=== PATIENT | male | born 1995 | race Caucasian/White ===

== ENCOUNTER 2020-10-30 14:36 | Emergency (ER) | payer BC ==
--- NOTE | 2020-10-30 15:50 | CR ---
Left shoulder: 3 views of the left shoulder were obtained. Comparison: No previous study. Glenohumeral joint and acromioclavicular joint appear within normal limits. No acute fracture, dislocation or other bony abnormality is appreciated. No abnormal soft tissue calcifications are seen. Impression: 1. No abnormality is appreciated on 3 view left shoulder study. Diagnostic code #1
--- NOTE | 2020-10-30 16:30 | EDM.PDOC ---
ED HPI GENERAL MEDICAL PROBLEM - General Chief Complaint: Upper Extremity Injury/Pain Stated Complaint: LT SHOULDER PAIN Time Seen by Provider: 10/30/20 14:53 Source of Information: Reports: Patient History Limitations: Reports: No Limitations - History of Present Illness INITIAL COMMENTS - FREE TEXT/NARRATIVE: 25-year-old male presents the emergency department today with complaints of left shoulder pain. Patient states that approximately a year ago he injured his left shoulder while at work. He does not recall exactly how it happened however he noted that it felt like it was shifting and grinding. He states that he did follow-up and it was recommended that he see physical therapy for strengthening however he was not able to do this due to Covid. He states that eventually the pain and weakness in the shoulder joint resolved. About 2 weeks ago the patient was wrestling with a friend when he felt his shoulder give way and felt like it was grinding. He states since that time he cannot raise his left arm laterally and if he does he feels like there is something "slipping "in his left shoulder and he also experiences a significant amount of pain. States that over the course the past 2 days when he has his hands at his side, such as walking, he notices his left arm from his shoulder to his fingertips feel numb and tingly. He has used a sling and this does seem to help and resolve the numbness and tingling. He was seen at [facility] recently and started on ibuprofen 600 mg 3 times a day however he states that it is no longer helping the discomfort. Patient does have an appointment scheduled with Dr. Nicolas, orthopedic surgeon, however it is not until the of this month. 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 Left Shoulder Pain Score (Numeric/FACES): 3 - Related Data Allergies Allergy/AdvReac Type Severity Reaction Status Date / Time No Known Allergies Allergy Verified 10/30/20 14:55 Home Meds: Home Meds Gabapentin [Neurontin] 600 mg PO BEDTIME #20 tab 10/30/20 [Rx] Ibuprofen [Ibu] 600 mg PO TID PRN 10/30/20 [History] Past Medical History Musculoskeletal History: Reports: Fracture Other Musculoskeletal History: left foot (2010) - Infectious Disease History Infectious Disease History: Reports: None - Past Surgical History HEENT Surgical History: Reports: Oral Surgery Other HEENT Surgeries/Procedures: [place] Teeth extraction Social & Family History - Family History Family Medical History: No Pertinent Family History - Caffeine Use Caffeine Use: Reports: Soda - Recreational Drug Use Recreational Drug Use: No Review of Systems - Review of Systems Review Of Systems: Comprehensive ROS is negative, except as noted in HPI. ED EXAM, GENERAL - Physical Exam Exam: See Below Exam Limited By: No Limitations General Appearance: Alert, WD/WN, No Apparent Distress Ears: Normal External Exam, Hearing Grossly Normal Nose: Normal Inspection Throat/Mouth: Normal Inspection, Normal Lips, Normal Voice, No Airway Compromise Head: Atraumatic Neck: Normal Inspection, Supple Respiratory/Chest: No Respiratory Distress, No Accessory Muscle Use Cardiovascular: Normal Peripheral Pulses, Regular Rate, Rhythm, No Murmur Peripheral Pulses: 2+: Radial (L), Radial (R) GI/Abdominal: No Distention (Male) Exam: Deferred Rectal (Males) Exam: Deferred Back Exam: Normal Inspection Extremities: Normal Inspection, Normal Capillary Refill, Limited Range of Motion (Left upper extremity). No: Non-Tender (Tenderness noted to left upper extremity when lifting arm laterally) Neurological: Alert, Oriented, Normal Cognition Psychiatric: Normal Affect, Normal Mood Skin Exam: Warm, Dry, Intact, Normal Color, No Rash Lymphatic: No Adenopathy Course - Vital Signs Text/Narrative:: Patient presents with pain and decreased range of motion to his left shoulder. Was recently seen at [facility] and started on ibuprofen however no x-rays were completed. Upon my assessment patient is unable to raise his left arm laterally higher than shoulder level with active range of motion due to pain and a grinding sensation in his left shoulder. Patient does allow me to raise his arm just slightly above his head laterally with passive range of motion however he does develop discomfort with that as well. He has decreased strength noted on the left side versus the right when arm is placed behind his back allowing him to push away from his body. I have ordered an x-ray of the left shoulder. Last Recorded V/S: Last Vital Signs Temp 98.7 F 10/30/20 14:50 Pulse 83 10/30/20 14:50 Resp 16 10/30/20 14:50 BP 143/76 H 10/30/20 14:50 Pulse Ox 98 10/30/20 14:50 - Orders/Labs/Meds Orders: Active Orders 24 hr Category Date Time Status DME for Discharge [COMM] Stat Oth 10/30/20 16:14 Ordered - Re-Assessments/Exams Free Text/Narrative Re-Assessment/Exam: 10/30/20 16:57 Radiologist impression 3 view of the left shoulder: 1. No abnormality is appreciated on 3 view of the left shoulder study. Patient will need to follow-up with the orthopedic surgeon as he likely needs an MRI of the left shoulder. He will be placed in the sling and swath to provide stability and prevent further injury of the left shoulder. I will also order for him to begin taking gabapentin 600 mg at bedtime per recommendations of Dr. Giles. Departure - Departure Time of Disposition: 16:24 Disposition: Home, Self-Care 01 Condition: Good Clinical Impression: Recent shoulder injury - Discharge Information Prescriptions: Gabapentin [Neurontin] 600 mg PO BEDTIME #20 tab Referrals: PCP,None [Primary Care Provider] - Forms: ED Department Discharge Additional Instructions: You are seen in the emergency department today with complaints of pain to your left shoulder after injury that occurred about 2 weeks ago when wrestling with a friend. X-rays were completed and these were essentially unremarkable. You likely have a tear to your glenohumeral joint. Treatment for this is immobilization with sling and swath. And follow up with Dr. Nicolas at [facility]. The phone number is [phone]. I have sent a prescription for Gabapentin 600mg to be taken at bedtime. This medication should help the pain and tingling. Sepsis Event Note (ED) - Evaluation Sepsis Screening Result: No Definite Risk - Focused Exam Vital Signs: Vital Signs Temp Pulse Resp BP Pulse Ox 10/30/20 14:50 98.7 F 83 16 143/76 H 98 - My Orders Last 24 Hours: My Active Orders 10/30/20 16:14 DME for Discharge [COMM] Stat - Assessment/Plan Last 24 Hours: My Active Orders 10/30/20 16:14 DME for Discharge [COMM] Stat
== END 2020-10-30 17:03 | disposition home or self-care (01) ==
LOC: JD.ED 14:36
DX: S49.92XA Unspecified injury of left shoulder and upper arm, initial encounter (principal); X58.XXXA Exposure to other specified factors, initial encounter; Y93.72 Activity, wrestling
CPT/HCPCS: 73030-26-LT; 73030-LT; 99283

== ENCOUNTER 2021-03-30 18:22 | Observation (INO) | payer BC ==
[2021-03-30] MEDS ORDERED: Ketorolac 30 MG/ML SDV IVPUSH ONE (19:44)
[2021-03-30] MEDS ORDERED: Ondansetron 4 MG/2 ML SDV IVPUSH ONE (19:44)
[2021-03-30] MEDS ORDERED: Sodium Chloride 0.9% 1,000 ML IV ONE (19:44)
--- NOTE | 2021-03-30 19:57 | EDM.PDOC ---
<SandeeEsteban magaña - Last Filed: 03/31/21 18:41> ED HPI GENERAL MEDICAL PROBLEM - General Chief Complaint: Gastrointestinal Problem Stated Complaint: ABDOMINAL PAIN Time Seen by Provider: 03/30/21 19:18 - Related Data Allergies Allergy/AdvReac Type Severity Reaction Status Date / Time No Known Allergies Allergy Verified 03/31/21 05:18 Home Meds: Home Meds Ibuprofen [Ibu] 600 mg PO TID PRN 10/30/20 [History] oxyCODONE 5 mg PO Q4H PRN #15 tab 03/31/21 [Rx] oxyCODONE 5 mg PO Q4H PRN #15 tab 03/31/21 [Rx] ED ROS GENERAL - Review of Systems Review Of Systems: See Below Course - Re-Assessments/Exams Free Text/Narrative Re-Assessment/Exam: 03/31/21 00:03 Patient's Covid status came back and it is positive I did inform the patient of this. Departure - Departure Disposition: Refer to Observation Clinical Impression: Appendicitis Qualifiers: Appendicitis type: acute appendicitis Acute appendicitis type: unspecified acute appendicitis type Qualified Code(s): K35.80 - Unspecified acute appendicitis - Discharge Information <George Jones - Last Filed: 04/02/21 13:21> ED HPI GENERAL MEDICAL PROBLEM - General Source of Information: Reports: Patient History Limitations: Reports: No Limitations - History of Present Illness INITIAL COMMENTS - FREE TEXT/NARRATIVE: 25-year-old male presents the emergency department with complaints of nausea vomiting, abdominal pain and constipation. Patient states his last normal bowel movement was 4 days ago. He states that last evening he developed nausea, vomiting and abdominal pain. He denies any recent fever or chills. He states he has tried to take oral stool softeners however he has vomited them up. He states he is probably vomited approximately 100 times in the past 24 hours and is unable to keep any food or fluids down. He also tried to use a rectal suppository and fleets enema however he has not had a bowel movement from these interventions. He states he is otherwise healthy and as a rule does not have any issues with constipation. Abdomen Pain Score (Numeric/FACES): 6 Past Medical History Musculoskeletal History: Reports: Fracture Other Musculoskeletal History: left foot (2010) - Infectious Disease History Infectious Disease History: Reports: None - Past Surgical History HEENT Surgical History: Reports: Oral Surgery Other HEENT Surgeries/Procedures: [place] Teeth extraction Social & Family History - Family History Family Medical History: No Pertinent Family History - Tobacco Use Tobacco Use Status *Q: Never Tobacco User - Caffeine Use Caffeine Use: Reports: Soda ED ROS GENERAL - Review of Systems Review Of Systems: Comprehensive ROS is negative, except as noted in HPI. ED EXAM, GI/ABD - Physical Exam Exam: See Below Exam Limited By: No Limitations General Appearance: Alert, WD/WN, Mild Distress Ears: Normal External Exam, Hearing Grossly Normal Nose: Normal Inspection Throat/Mouth: Normal Inspection, Normal Lips, Normal Voice, No Airway Compromise Head: Atraumatic Neck: Normal Inspection, Supple Respiratory/Chest: No Respiratory Distress, Lungs Clear, Normal Breath Sounds, No Accessory Muscle Use, Chest Non-Tender Cardiovascular: Normal Peripheral Pulses, Regular Rate, Rhythm, No Edema, No Murmur GI/Abdominal Exam: Normal Bowel Sounds, Soft, No Distention, Tender (Tenderness noted in all 4 quadrants described as cramping pain) (Male) Exam: Deferred Rectal (Males) Exam: Deferred Back Exam: Normal Inspection Extremities: Normal Inspection Neurological: Alert, Oriented, Normal Cognition Psychiatric: Normal Affect, Normal Mood Skin Exam: Warm, Dry, Intact, Normal Color, No Rash Lymphatic: No Adenopathy Course - Vital Signs Text/Narrative:: As stated above, patient presents with 24-hour history of nausea, vomiting, abdominal pain. He states he is vomited approximately 100 times in the past 24 hours and is unable to keep any food or fluids down. Upon exam, the patient is curled up in bed in the position on his left side. Abdomen is tender in all 4 quadrants however he does have positive bowel tones. Remainder physical exam is otherwise unremarkable. Patient is hemodynamically stable at this time. Last Recorded V/S: Last Vital Signs Temp 97.5 F 03/31/21 12:04 Pulse 56 L 03/31/21 12:05 Resp 12 03/31/21 09:17 BP 129/59 L 03/31/21 12:04 Pulse Ox 99 03/31/21 12:05 - Orders/Labs/Meds Labs: Laboratory Tests 03/30/21 03/30/21 Range/Units 19:40 19:40 WBC 11.06 H (4.23-9.07) K/mm3 RBC 4.51 L (4.63-6.08) M/mm3 Hgb 13.8 (13.7-17.5) gm/dl Hct 39.8 L (40.1-51.0) % MCV 88.2 (79.0-92.2) fl MCH 30.6 (25.7-32.2) pg MCHC 34.7 (32.2-35.5) g/dl RDW Std Deviation 39.8 (35.1-43.9) fL Plt Count 204 (163-337) K/mm3 MPV 11.2 (9.4-12.3) fl Neut % (Auto) 84.8 H (34.0-67.9) % Lymph % (Auto) 4.7 L (21.8-53.1) % [place] % (Auto) 10.2 (5.3-12.2) % Eos % (Auto) 0 L (0.8-7.0) Baso % (Auto) 0.1 (0.1-1.2) % Neut # (Auto) 9.38 H (1.78-5.38) K/mm3 Lymph # (Auto) 0.52 L (1.32-3.57) K/mm3 [place] # (Auto) 1.13 H (0.30-0.82) K/mm3 Eos # (Auto) 0.00 L (0.04-0.54) K/mm3 Baso # (Auto) 0.01 (0.01-0.08) K/mm3 Sodium 139 (136-145) mEq/L Potassium 3.5 (3.5-5.1) mEq/L Chloride 101 (98-107) mEq/L Carbon Dioxide 24 (21-32) mEq/L Anion Gap 17.5 H (5-15) BUN 11 (7-18) mg/dL Creatinine 0.9 (0.7-1.3) mg/dL Est Cr Clr Drug Dosing TNP Estimated GFR (MDRD) > 60 (>60) mL/min BUN/Creatinine Ratio 12.2 L (14-18) Glucose 115 H (70-99) mg/dL Calcium 8.9 (8.5-10.1) mg/dL Magnesium 1.8 (1.8-2.4) mg/dL Total Bilirubin 0.6 (0.2-1.0) mg/dL AST 10 L (15-37) U/L ALT 9 L (16-63) U/L Alkaline Phosphatase 57 (46-116) U/L C-Reactive Protein 18.0 H* (<1.0) mg/dL Total Protein 7.5 (6.4-8.2) g/dl Albumin 4.1 (3.4-5.0) g/dl Globulin 3.4 gm/dL Albumin/Globulin Ratio 1.2 (1-2) Meds: Medications Discontinued Medications Generic Name Dose Route Start Last Admin Trade Name Freq PRN Reason Stop Dose Admin Bupivacaine HCl Confirm 03/31/21 07:14 03/31/21 08:05 Bupivacaine 0.5% 30 Ml Sdv Administered 03/31/21 07:15 17 ml Dose Administration 30 ml .ROUTE .STK-MED ONE Fentanyl Confirm 03/31/21 07:22 Fentanyl 250 Mcg/5 Ml Sdv Administered 03/31/21 07:23 Dose 250 mcg .ROUTE .STK-MED ONE Fentanyl 50 mcg 03/31/21 08:52 Fentanyl 100 Mcg/2 Ml Sdv IVPUSH Q5M PRN Pain Glycopyrrolate Confirm 03/31/21 08:31 Glycopyrrolate 0.2 Mg/Ml 2 Ml Syringe Administered 03/31/21 08:32 Dose 0.4 mg .ROUTE .STK-MED ONE Glycopyrrolate Confirm 03/31/21 08:47 Glycopyrrolate 0.2 Mg/Ml 2 Ml Syringe Administered 03/31/21 08:48 Dose 0.4 mg .ROUTE .STK-MED ONE Hydromorphone HCl 0.5 mg 03/31/21 00:26 03/31/21 01:00 Hydromorphone 0.5 Mg/0.5 Ml Syringe IVPUSH 0.5 mg Q2H PRN Administration Pain Sodium Chloride 1,000 mls @ 999 mls/hr 03/30/21 19:44 03/30/21 19:59 Normal Saline IV 03/30/21 20:44 999 mls/hr ONETIME ONE Administration Sodium Chloride 1,000 mls @ 100 mls/hr 03/31/21 00:30 03/31/21 00:59 Normal Saline IV 100 mls/hr ASDIRECTED YVON Administration Piperacillin Sod/Tazobactam 100 mls @ 200 mls/hr 03/31/21 00:27 03/31/21 00:59 Sod 4.5 gm/ Sodium Chloride IV 03/31/21 00:56 200 mls/hr ONETIME ONE Administration Piperacillin Sod/Tazobactam 100 mls @ 25 mls/hr 03/31/21 06:30 03/31/21 05:51 Sod 4.5 gm/ Sodium Chloride IV 25 mls/hr Q8H YVON Administration Lidocaine HCl Confirm 03/31/21 07:22 Xylocaine-Mpf 1% Administered 03/31/21 07:23 Dose 4 mls @ as directed .ROUTE .STK-MED ONE Lactated Ringer's Confirm 03/31/21 08:10 Ringers, Lactated Administered 03/31/21 08:11 Dose 1,000 mls @ as directed .ROUTE .STK-MED ONE Influenza Virus Vaccine 1 each 03/31/21 00:41 Pharmacy To Dose - Influenza Vaccine IM 03/31/21 00:42 ONETIME ONE Influenza Virus Vaccine 60 mcg 03/31/21 00:45 Flu Vacc [id number] 36mos Up/Pf 60 Mcg/0.5 Ml Syringe IM 03/31/21 00:46 .ONCE ONE Iopamidol 100 ml 03/30/21 21:28 03/30/21 21:38 Iopamidol 612 Mg/Ml 100 Ml Bottle IVPUSH 03/30/21 21:29 100 ml ONETIME ONE Administration Iopamidol 25 ml 03/30/21 21:28 03/30/21 21:38 Iopamidol 612 Mg/Ml 50 Ml Sdv IVPUSH 03/30/21 21:29 25 ml ONETIME ONE Administration Ketorolac Tromethamine 30 mg 03/30/21 19:44 03/30/21 19:59 Ketorolac 30 Mg/Ml Sdv IVPUSH 03/30/21 19:45 30 mg ONETIME ONE Administration Midazolam HCl Confirm 03/31/21 07:22 Midazolam 1 Mg/Ml 2 Ml Sdv Administered 03/31/21 07:23 Dose 2 mg .ROUTE .STK-MED ONE Neostigmine Methylsulfate Confirm 03/31/21 08:18 Neostigmine Methylsulfate 5 Mg/5 Ml Syringe Administered 03/31/21 08:19 Dose 5 mg .ROUTE .STK-MED ONE Ondansetron HCl 4 mg 03/30/21 19:44 03/30/21 19:59 Ondansetron 4 Mg/2 Ml Sdv IVPUSH 03/30/21 19:45 4 mg ONETIME ONE Administration Ondansetron HCl 4 mg 03/31/21 00:20 03/31/21 01:00 Ondansetron 4 Mg/2 Ml Sdv IVPUSH 4 mg Q6H PRN Administration Nausea Ondansetron HCl Confirm 03/31/21 07:21 Ondansetron 4 Mg/2 Ml Sdv Administered 03/31/21 07:22 Dose 4 mg .ROUTE .STK-MED ONE Propofol Confirm 03/31/21 07:22 Propofol 200 Mg/20 Ml Sdv Administered 03/31/21 07:23 Dose 200 mg .ROUTE .STK-MED ONE Rocuronium [place] Confirm 03/31/21 07:21 Rocuronium 50 Mg/5 Ml Vial Administered 03/31/21 07:22 Dose 50 mg .ROUTE .STK-MED ONE Sodium Chloride 10 ml 03/30/21 19:40 03/30/21 21:38 Sodium Chloride 0.9% 10 Ml Syringe FLUSH 10 ml ASDIRECTED PRN Administration Keep Vein Open - Re-Assessments/Exams Free Text/Narrative Re-Assessment/Exam: 03/30/21 21:02 Hematology reveals a WBC of 11.06, hemoglobin 13.8, hematocrit 39.8, platelet count 204 Chemistry reveals a sodium of 139, potassium 3.5, anion gap 17.5, BUN 11, creatinine 0.9, GFR greater than 60, glucose 115, AST 10, ALT 9, C-reactive protein 18.0 Nothing acute is appreciated on flatplate of the abdomen. Formal radiologist report is pending. Discussed the results of the labs and the x-ray with the patient and his mother. White count is only slightly elevated and this could very likely be due to dehydration as the patient's anion gap is 17.5. C-reactive protein, however is 18.0 which could indicate some kind of an inflammatory response. Patient states that his nausea is almost completely resolved and his abdominal pain does feel better after receiving Toradol. Repeat exam of the abdomen notes tenderness in the right lower quadrant with palpation. I have offered to send the patient home and instruct to come back should he have abdominal pain versus getting a CT scan of the abdomen and pelvis to rule out appendicitis or an acute process. Patient would like to have CT scan completed. 03/30/21 22:23 V rad radiologist impression: Acute appendicitis without evidence of perforation or abscess. Discussed the CT results with the patient and his family. I did phone Dr. Turcios and he requests that I write bridge orders for the patient to be admitted into the hospital and he states he will take the patient to surgery first thing in the morning. Departure - Departure Time of Disposition: 00:11 Condition: Good Sepsis Event Note (ED) - Evaluation Sepsis Screening Result: No Definite Risk
[2021-03-30] MEDS: Sodium Chloride 0.9% 10 ML Syringe FLUSH PRN ×2 (19:59→21:38)
[2021-03-30] MEDS ORDERED: Iopamidol 612 MG/ML 100 ML Bottle IVPUSH ONE (21:28)
[2021-03-30] MEDS ORDERED: Iopamidol 612 MG/ML 50 ML SDV IVPUSH ONE (21:28)
[2021-03-31] MEDS ORDERED: Ondansetron 4 MG/2 ML SDV IVPUSH PRN (00:20)
[2021-03-31] MEDS ORDERED: HYDROmorphone 0.5 MG/0.5 ML Syringe IVPUSH PRN (00:26)
[2021-03-31] MEDS ORDERED: Piperacillin/Tazobactam 4.5 GM in Sodium Chloride 0.9% 100 ML IV ONE (00:27)
[2021-03-31] MEDS ORDERED: Sodium Chloride 0.9% 1,000 ML IV SCH (00:30)
[2021-03-31] MEDS ORDERED: FLU Vacc QS2021-22 36MOS UP/PF 60 MCG/0.5 ML Syringe IM ONE (00:45)
[2021-03-31] MEDS ORDERED: Piperacillin/Tazobactam 4.5 GM in Sodium Chloride 0.9% 100 ML IV SCH (06:30)
[2021-03-31] MEDS ORDERED: Bupivacaine 0.5% 30 ML SDV ONE (07:14)
[2021-03-31] MEDS ORDERED: Ondansetron 4 MG/2 ML SDV ONE (07:21)
[2021-03-31] MEDS ORDERED: Rocuronium 50 MG/5 ML Vial ONE (07:21)
[2021-03-31] MEDS ORDERED: fentaNYL 250 MCG/5 ML SDV ONE (07:22)
[2021-03-31] MEDS ORDERED: Propofol 200 MG/20 ML SDV ONE (07:22)
[2021-03-31] MEDS ORDERED: Lidocaine 1% 4 ML ONE (07:22)
[2021-03-31] MEDS ORDERED: Midazolam 1 MG/ML 2 ML SDV ONE (07:22)
--- NOTE | 2021-03-31 07:45 | CR ---
Abdomen: Supine view of the abdomen was obtained. Comparison: No prior abdominal imaging is available. Subsequent CT abdomen and pelvis study performed on 03/30/21. Bowel gas pattern is normal. No abnormal calcifications or soft tissue abnormality is seen. Bony structures appear within normal limits. Impression: 1. Nothing acute is seen on supine abdominal x-ray. Diagnostic code #1
--- NOTE | 2021-03-31 08:02 | CT ---
CT abdomen and pelvis Technique: Multiple axial sections were obtained from above the dome of the diaphragm inferiorly through the pubic symphysis. Intravenous contrast was utilized. No oral contrast has been given. Delayed images were obtained to the bladder. Reconstructed coronal and sagittal images were obtained. Comparison: No prior abdominal imaging is available. Slightly dilated tubular structure is seen within the right lower quadrant which is felt compatible with mildly dilated appendix compatible with early appendicitis. Visualized lung bases show nothing acute. Liver contains no focal abnormality. Spleen size is normal. Kidneys show symmetric contrast enhancement with no hydronephrosis or mass. Adrenal glands show no nodule. No abnormality is seen within the pancreas. Gallbladder contains no calcified gallstones. No free fluid or inflammatory change is seen. Minimal fluid is seen within the pelvis which is believed to be secondary to the inflammatory process of appendicitis. No additional abnormality is appreciated. Delayed images show contrast within the distal ureters and within the bladder. No bowel dilatation is seen. Bone window settings were reviewed which show no acute osseous abnormality. Impression: 1. Findings are suspicious for early appendicitis. 2. Minimal fluid within the pelvis which is believed to be secondary to the inflammatory process. 3. No additional abnormality is appreciated on CT study of the abdomen and pelvis. Diagnostic code #3 I agree with preliminary report from [facility], finalized on 03/30/21, 11:10 PM CDT, code 1
[2021-03-31] MEDS ORDERED: Lactated Ringers 1,000 ML ONE (08:10)
--- NOTE | 2021-03-31 08:32 | PCM.HP.2 ---
H&P History of Present Illness - General Date of Service: 03/31/21 Admit Problem/Dx: Admission Diagnosis/Problem Admission Diagnosis/Problem Appendicitis Source of Information: Patient History Limitations: Reports: No Limitations - History of Present Illness Initial Comments - Free Text/Narative: 25 yo healthy male presents with one day of right lower quadrant pain, workup in ER shows leukocytosis imaging findings consistent with acute appendicitis. Abdomen Pain Score (Numeric/FACES): 2 - Related Data Allergies/Adverse Reactions: Allergies Allergy/AdvReac Type Severity Reaction Status Date / Time No Known Allergies Allergy Verified 03/31/21 05:18 Home Medications: Home Meds Ibuprofen [Ibu] 600 mg PO TID PRN 10/30/20 [History] Past Medical History HEENT History: Reports: Allergic Rhinitis Other HEENT History: Seasonal allergies Genitourinary History: Reports: None Musculoskeletal History: Reports: Fracture Other Musculoskeletal History: left foot (2010) - Infectious Disease History Infectious Disease History: Reports: Novel Coronavirus - Past Surgical History HEENT Surgical History: Reports: Oral Surgery Other HEENT Surgeries/Procedures: [place] Teeth extraction Musculoskeletal Surgical History: Reports: Shoulder Surgery Other Musculoskeletal Surgeries/Procedures:: December 2020 Social & Family History - Family History Family Medical History: No Pertinent Family History - Tobacco Use Tobacco Use Status *Q: Current Every Day Tobacco User Years of Tobacco use: 2 Packs/Tins Daily: 1 Used Tobacco, but Quit: No Second Hand Smoke Exposure: No - Caffeine Use Caffeine Use: Reports: Coffee, Soda Other Caffeine Use: either one cup of coffee or one pop a day - Recreational Drug Use Recreational Drug Use: No H&P Review of Systems - Review of Systems: Review Of Systems: See Below General: Reports: No Symptoms HEENT: Reports: No Symptoms Pulmonary: Reports: No Symptoms Cardiovascular: Reports: No Symptoms Gastrointestinal: Reports: Abdominal Pain Genitourinary: Reports: No Symptoms Musculoskeletal: Reports: No Symptoms Skin: Reports: No Symptoms Psychiatric: Reports: No Symptoms Neurological: Reports: No Symptoms Hematologic/Lymphatic: Reports: No Symptoms Immunologic: Reports: No Symptoms Exam - Exam Exam: See Below - Vital Signs Vital Signs: Last Vital Signs Temp 36.6 C 03/31/21 05:50 Pulse 79 03/31/21 05:50 Resp 16 03/31/21 05:50 BP 104/53 L 03/31/21 05:50 Pulse Ox 98 03/31/21 05:50 Weight: 61.87 kg - Exam General: Alert, Oriented, Cooperative HEENT: Conjunctiva Clear Neck: Supple Lungs: Normal Respiratory Effort Cardiovascular: Regular Rate GI/Abdominal Exam: Tender Extremities: Normal Inspection Skin: Warm, Dry Neuro Extensive - Mental Status: Alert, Oriented x3 - Patient Data Lab Results Last 24 hrs: Laboratory Results - last 24 hr 03/30/21 03/30/21 03/30/21 Range/Units 19:40 19:40 22:52 WBC 11.06 H (4.23-9.07) K/mm3 RBC 4.51 L (4.63-6.08) M/mm3 Hgb 13.8 (13.7-17.5) gm/dl Hct 39.8 L (40.1-51.0) % MCV 88.2 (79.0-92.2) fl MCH 30.6 (25.7-32.2) pg MCHC 34.7 (32.2-35.5) g/dl RDW Std Deviation 39.8 (35.1-43.9) fL Plt Count 204 (163-337) K/mm3 MPV 11.2 (9.4-12.3) fl Neut % (Auto) 84.8 H (34.0-67.9) % Lymph % (Auto) 4.7 L (21.8-53.1) % [place] % (Auto) 10.2 (5.3-12.2) % Eos % (Auto) 0 L (0.8-7.0) Baso % (Auto) 0.1 (0.1-1.2) % Neut # (Auto) 9.38 H (1.78-5.38) K/mm3 Lymph # (Auto) 0.52 L (1.32-3.57) K/mm3 [place] # (Auto) 1.13 H (0.30-0.82) K/mm3 Eos # (Auto) 0.00 L (0.04-0.54) K/mm3 Baso # (Auto) 0.01 (0.01-0.08) K/mm3 Sodium 139 (136-145) mEq/L Potassium 3.5 (3.5-5.1) mEq/L Chloride 101 (98-107) mEq/L Carbon Dioxide 24 (21-32) mEq/L Anion Gap 17.5 H (5-15) BUN 11 (7-18) mg/dL Creatinine 0.9 (0.7-1.3) mg/dL Est Cr Clr Drug Dosing TNP Estimated GFR (MDRD) > 60 (>60) mL/min BUN/Creatinine Ratio 12.2 L (14-18) Glucose 115 H (70-99) mg/dL Calcium 8.9 (8.5-10.1) mg/dL Magnesium 1.8 (1.8-2.4) mg/dL Total Bilirubin 0.6 (0.2-1.0) mg/dL AST 10 L (15-37) U/L ALT 9 L (16-63) U/L Alkaline Phosphatase 57 (46-116) U/L C-Reactive Protein 18.0 H* (<1.0) mg/dL Total Protein 7.5 (6.4-8.2) g/dl Albumin 4.1 (3.4-5.0) g/dl Globulin 3.4 gm/dL Albumin/Globulin Ratio 1.2 (1-2) SARS-CoV-2 RNA ([place]IE) Positive H (NEGATIVE) Result Diagrams: 03/30/21 19:40 03/30/21 19:40 Sepsis Event Note - Evaluation Sepsis Screening Result: No Definite Risk - Focused Exam Vital Signs: Vital Signs Temp Pulse Resp BP Pulse Ox 03/31/21 05:50 36.6 C 79 16 104/53 L 98 03/31/21 00:25 36.5 C 57 L 20 121/56 L 100 Problem List Initiated/Reviewed/Updated: Yes Orders Last 24hrs: Active Orders 24 hr Category Date Time Status Admission Status [Patient Status] [ADT] Routine ADT 03/30/21 22:50 Active Activity as Tolerated [RC] .Routine Care 03/31/21 04:24 Active Vaccine to be Administered/Admin Charge [RC] ASDIRECTED Care 03/31/21 00:42 Active NPO Now [Nothing per Oral Now Diet] [DIET] Diet 03/31/21 Breakfast Active HYDROmorphone [Dilaudid] Med 03/31/21 00:26 Active 0.5 mg IVPUSH Q2H PRN Ondansetron [Zofran] Med 03/31/21 00:20 Active 4 mg IVPUSH Q6H PRN Piperacillin/Tazobactam [Piperacil-Tazobact] 4.5 gm Med 03/31/21 06:30 Active Sodium Chloride 0.9% [Normal Saline AdvBag] 100 ml IV Q8H Sodium Chloride 0.9% [Normal Saline] 1,000 ml Med 03/31/21 00:30 Active IV ASDIRECTED Sodium Chloride 0.9% [Saline Flush] Med 03/30/21 19:40 Active 10 ml FLUSH ASDIRECTED PRN Saline Lock Insert [OM.PC] Stat Oth 03/30/21 19:40 Ordered Schedule Procedure [COMM] Routine Oth 03/31/21 08:00 Ordered Code Status [Resuscitation Status] Routine Resus Stat 03/31/21 04:24 Ordered Medication Orders Hydromorphone HCl (Hydromorphone 0.5 Mg/0.5 Ml Syringe) 0.5 mg IVPUSH Q2H PRN PRN Reason: Pain Last Admin: 03/31/21 01:00 Dose: 0.5 mg Documented by: JOSEPH Sodium Chloride (Normal Saline) 1,000 mls @ 100 mls/hr IV ASDIRECTED [facility] TO [facility] Last Admin: 03/31/21 00:59 Dose: 100 mls/hr Documented by: JOSEPH Piperacillin Sod/Tazobactam (Sod 4.5 gm/ Sodium Chloride) 100 mls @ 25 mls/hr IV Q8H [facility] Last Admin: 03/31/21 05:51 Dose: 25 mls/hr Documented by: JOSEPH Ondansetron HCl (Ondansetron 4 Mg/2 Ml Sdv) 4 mg IVPUSH Q6H PRN PRN Reason: Nausea Last Admin: 03/31/21 01:00 Dose: 4 mg Documented by: JOSEPH Sodium Chloride (Sodium Chloride 0.9% 10 Ml Syringe) 10 ml FLUSH ASDIRECTED PRN PRN Reason: Keep Vein Open Last Admin: 03/30/21 21:38 Dose: 10 ml Documented by: Admin: 03/30/21 19:59 Dose: 10 ml Documented by: EUSEBIA Assessment/Plan Comment:: Acute appendicitis. COVID test positive. Plan for laparoscopic appendectomy and discharge to home from recovery unit. - Mortality Measure Prognosis:: Good
--- NOTE | 2021-03-31 08:37 | PCM.PRNOTE ---
- Free Text/Narrative Note: Date: 03/31/2021 Operation: laparoscopic appendectomy Indication: acute appendicitis Surgeon: Fernando Turcios MD Antibiotic: zosyn EBL: 5 cc DVT ppx: SCD Specimen: appendix Findings: acute appendicitis without gangrene or perforation. Detailed Report: The patient was taken to the operating room and placed on the table in supine position. Time out was performed and general endotracheal anesthesia initiated. The left arm was tucked and abdomen was prepped and draped in usual sterile fashion. A Veress needle was placed in the left upper quadrant to establish pneumoperitoneum. Once pressure reached 15 mm Hg, air was aspirated with a needle and syringe inferior to the umbilicus. A bladed 12 mm trocar was placed at this site. A 5 mm 30 degree laparoscope was inserted into the abdomen. There was no apparent injury from Veress placement and the needle was withdrawn. No hemorrhage was noted from the insertion site on withdrawal. Additional 5 mm ports were placed under laparoscopic visualization, one at the left lower quadrant and one at the suprapubic area. The patient was placed in Trendelenburg and rotated toward the surgeon standing on the patient's left side. The appendix was identified and appeared inflamed without suppuration, gangrene or evidence of perforation. A window was made near the base of the appendix through the mesoappendix using the [place] Ligasure. The appendix was divided flush with the cecum using a 35 mm vascular staple load on a powered laparoscopic linear cutting stapler. The mesoappendix was divided using the Ligasure. The specimen was placed in an endocatch bag and removed through the umbilical site. the dissection field was suctioned dry and hemostasis was satisfactory. The umbilical incision was closed at fascia with 0 vicryl. 5 mm ports were removed under laparoscopic visualization and no bleeding was noted. Pneumoperitoneum was released. All skin incisions were closed with running subcuticular vicryl and dressed with dermabond. The patient tolerated the operation well.
--- NOTE | 2021-03-31 08:39 | PCM.DCSUM1 ---
Discharge Summary - Hospital Course Free Text/Narrative:: Acute appendicitis diagnosed in the ER the evening of 03/30. Patient was admitted for pain control, fluids and antibiotics until planned laparoscopic appendectomy the following morning. The operation was completed without complication and he was deemed fit for discharge to home after completion. Diagnosis: Stroke: No - Discharge Data Discharge Date: 03/31/21 Discharge Disposition: Home, Self-Care 01 Condition: Good - Referral to Home Health Primary Care Physician: PCP None - Patient Summary/Data Operative Procedure(s) Performed: laparoscopic appendectomy - Patient Instructions Diet: Usual Diet as Tolerated Activity: No Lifting Over 10 Pounds Showering/Bathing: September Shower Wound/Incision Care: Keep Operative Site/Wound Site Clean and Dry Notify Provider of: Fever, Increased Pain, Swelling and Redness, Drainage, Nausea and/or Vomiting - Discharge Plan *PRESCRIPTION DRUG MONITORING PROGRAM REVIEWED*: Not Applicable *COPY OF PRESCRIPTION DRUG MONITORING REPORT IN PATIENT MARSHA: Not Applicable Prescriptions/Med Rec: oxyCODONE 5 mg PO Q4H PRN #15 tab PRN Reason: Pain Home Medications: Home Meds Ibuprofen [Ibu] 600 mg PO TID PRN 10/30/20 [History] oxyCODONE 5 mg PO Q4H PRN #15 tab 03/31/21 [Rx] Oxygen Therapy Mode: Room Air Forms: ED Department Discharge Referrals: PCP,None [Primary Care Provider] - - Discharge Summary/Plan Comment DC Time >30 min.: No Total # of Minutes for Discharge Time: 15 Discharge Summary/Plan Comment: follow up in surgery clinic in 2 weeks for post op check - Patient Data Vitals - Most Recent: Last Vital Signs Temp 36.6 C 03/31/21 05:50 Pulse 79 03/31/21 05:50 Resp 16 03/31/21 05:50 BP 104/53 L 03/31/21 05:50 Pulse Ox 98 03/31/21 05:50 Weight - Most Recent: 61.87 kg I&O - Last 24 hours: Intake & Output 03/30/21 03/31/21 03/31/21 22:59 06:59 14:59 Intake Total 715 Balance 715 Lab Results - Last 24 hrs: Laboratory Results - last 24 hr 03/30/21 03/30/21 03/30/21 Range/Units 19:40 19:40 22:52 WBC 11.06 H (4.23-9.07) K/mm3 RBC 4.51 L (4.63-6.08) M/mm3 Hgb 13.8 (13.7-17.5) gm/dl Hct 39.8 L (40.1-51.0) % MCV 88.2 (79.0-92.2) fl MCH 30.6 (25.7-32.2) pg MCHC 34.7 (32.2-35.5) g/dl RDW Std Deviation 39.8 (35.1-43.9) fL Plt Count 204 (163-337) K/mm3 MPV 11.2 (9.4-12.3) fl Neut % (Auto) 84.8 H (34.0-67.9) % Lymph % (Auto) 4.7 L (21.8-53.1) % [place] % (Auto) 10.2 (5.3-12.2) % Eos % (Auto) 0 L (0.8-7.0) Baso % (Auto) 0.1 (0.1-1.2) % Neut # (Auto) 9.38 H (1.78-5.38) K/mm3 Lymph # (Auto) 0.52 L (1.32-3.57) K/mm3 [place] # (Auto) 1.13 H (0.30-0.82) K/mm3 Eos # (Auto) 0.00 L (0.04-0.54) K/mm3 Baso # (Auto) 0.01 (0.01-0.08) K/mm3 Sodium 139 (136-145) mEq/L Potassium 3.5 (3.5-5.1) mEq/L Chloride 101 (98-107) mEq/L Carbon Dioxide 24 (21-32) mEq/L Anion Gap 17.5 H (5-15) BUN 11 (7-18) mg/dL Creatinine 0.9 (0.7-1.3) mg/dL Est Cr Clr Drug Dosing TNP Estimated GFR (MDRD) > 60 (>60) mL/min BUN/Creatinine Ratio 12.2 L (14-18) Glucose 115 H (70-99) mg/dL Calcium 8.9 (8.5-10.1) mg/dL Magnesium 1.8 (1.8-2.4) mg/dL Total Bilirubin 0.6 (0.2-1.0) mg/dL AST 10 L (15-37) U/L ALT 9 L (16-63) U/L Alkaline Phosphatase 57 (46-116) U/L C-Reactive Protein 18.0 H* (<1.0) mg/dL Total Protein 7.5 (6.4-8.2) g/dl Albumin 4.1 (3.4-5.0) g/dl Globulin 3.4 gm/dL Albumin/Globulin Ratio 1.2 (1-2) SARS-CoV-2 RNA ([place]IE) Positive H (NEGATIVE) Med Orders - Current: Current Medications Hydromorphone HCl (Hydromorphone 0.5 Mg/0.5 Ml Syringe) 0.5 mg IVPUSH Q2H PRN PRN Reason: Pain Last Admin: 03/31/21 01:00 Dose: 0.5 mg Documented by: Sodium Chloride (Normal Saline) 1,000 mls @ 100 mls/hr IV ASDIRECTED [facility] Last Admin: 03/31/21 00:59 Dose: 100 mls/hr Documented by: Piperacillin Sod/Tazobactam (Sod 4.5 gm/ Sodium Chloride) 100 mls @ 25 mls/hr IV Q8H [facility] Last Admin: 03/31/21 05:51 Dose: 25 mls/hr Documented by: Ondansetron HCl (Ondansetron 4 Mg/2 Ml Sdv) 4 mg IVPUSH Q6H PRN PRN Reason: Nausea Last Admin: 03/31/21 01:00 Dose: 4 mg Documented by: Sodium Chloride (Sodium Chloride 0.9% 10 Ml Syringe) 10 ml FLUSH ASDIRECTED PRN PRN Reason: Keep Vein Open Last Admin: 03/30/21 21:38 Dose: 10 ml Documented by: Discontinued Medications Bupivacaine HCl (Bupivacaine 0.5% 30 Ml Sdv) Confirm Administered Dose 30 ml .ROUTE .STK-MED ONE Stop: 03/31/21 07:15 Last Admin: 03/31/21 08:05 Dose: 30 ml Documented by: Fentanyl (Fentanyl 250 Mcg/5 Ml Sdv) Confirm Administered Dose 250 mcg .ROUTE .STK-MED ONE Stop: 03/31/21 07:23 Glycopyrrolate (Glycopyrrolate 0.2 Mg/Ml 2 Ml Syringe) Confirm Administered Dose 0.4 mg .ROUTE .STK-MED ONE Stop: 03/31/21 08:32 Sodium Chloride (Normal Saline) 1,000 mls @ 999 mls/hr IV ONETIME ONE Stop: 03/30/21 20:44 Last Admin: 03/30/21 19:59 Dose: 999 mls/hr Documented by: Piperacillin Sod/Tazobactam (Sod 4.5 gm/ Sodium Chloride) 100 mls @ 200 mls/hr IV ONETIME ONE Stop: 03/31/21 00:56 Last Admin: 03/31/21 00:59 Dose: 200 mls/hr Documented by: Lidocaine HCl (Xylocaine-Mpf 1%) Confirm Administered Dose 4 mls @ as directed .ROUTE .STK-MED ONE Stop: 03/31/21 07:23 Lactated Ringer's (Ringers, Lactated) Confirm Administered Dose 1,000 mls @ as directed .ROUTE .[facility]-MED ONE Stop: 03/31/21 08:11 Influenza Virus Vaccine (Pharmacy To Dose - Influenza Vaccine) 1 each IM ONETIME ONE Stop: 03/31/21 00:42 Influenza Virus Vaccine (Flu Vacc Ib0635-77 36mos Up/Pf 60 Mcg/0.5 Ml Syringe) 60 mcg IM .ONCE ONE Stop: 03/31/21 00:46 Iopamidol (Iopamidol 612 Mg/Ml 100 Ml Bottle) 100 ml IVPUSH ONETIME ONE Stop: 03/30/21 21:29 Last Admin: 03/30/21 21:38 Dose: 100 ml Documented by: Iopamidol (Iopamidol 612 Mg/Ml 50 Ml Sdv) 25 ml IVPUSH ONETIME ONE Stop: 03/30/21 21:29 Last Admin: 03/30/21 21:38 Dose: 25 ml Documented by: Ketorolac Tromethamine (Ketorolac 30 Mg/Ml Sdv) 30 mg IVPUSH ONETIME ONE Stop: 03/30/21 19:45 Last Admin: 03/30/21 19:59 Dose: 30 mg Documented by: Midazolam HCl (Midazolam 1 Mg/Ml 2 Ml Sdv) Confirm Administered Dose 2 mg .ROUTE .STK-MED ONE Stop: 03/31/21 07:23 Neostigmine Methylsulfate (Neostigmine Methylsulfate 5 Mg/5 Ml Syringe) Confirm Administered Dose 5 mg .ROUTE .STK-MED ONE Stop: 03/31/21 08:19 Ondansetron HCl (Ondansetron 4 Mg/2 Ml Sdv) 4 mg IVPUSH ONETIME ONE Stop: 03/30/21 19:45 Last Admin: 03/30/21 19:59 Dose: 4 mg Documented by: Ondansetron HCl (Ondansetron 4 Mg/2 Ml Sdv) Confirm Administered Dose 4 mg .ROUTE .STK-MED ONE Stop: 03/31/21 07:22 Propofol (Propofol 200 Mg/20 Ml Sdv) Confirm Administered Dose 200 mg .ROUTE .STK-MED ONE Stop: 03/31/21 07:23 Rocuronium [place] (Rocuronium 50 Mg/5 Ml Vial) Confirm Administered Dose 50 mg .ROUTE .STK-MED ONE Stop: 03/31/21 07:22
[2021-03-31] MEDS ORDERED: fentaNYL 100 MCG/2 ML SDV IVPUSH PRN (08:52)
--- NOTE | 2021-03-31 08:53 | PCM.POSTAN ---
POST ANESTHESIA ASSESSMENT - MENTAL STATUS Mental Status: Alert, Oriented - VITAL SIGNS Vital Signs: Last Vital Signs Temp 36.5 C 03/31/21 08:44 Pulse 91 03/31/21 08:44 Resp 16 03/31/21 08:44 BP 142/78 H 03/31/21 08:44 Pulse Ox 100 03/31/21 08:44 - RESPIRATORY Respiratory Status: Respiratory Rate WNL, Airway Patent, O2 Saturation Stable, Supplemental Oxygen - CARDIOVASCULAR CV Status: Pulse Rate WNL, Blood Pressure Stable - GASTROINTESTINAL GI Status: No Symptoms - PAIN Pain Score: 0 - POST OP HYDRATION Hydration Status: Adequate & Stable - OBSERVATIONS Free Text/Narrative:: no anesthesia complications noted
--- NOTE | 2021-03-31 08:54 | PCM.PREANE ---
Preanesthetic Assessment - Procedure Proposed Procedure: laparoscopic appendectomy - Anesthesia/Transfusion/Family Hx Anesthesia History: Prior Anesthesia Without Reaction Family History of Anesthesia Reaction: No Transfusion History: No Prior Transfusion(s) - Review of Systems General: Fatigue, Malaise Pulmonary: No Symptoms Cardiovascular: No Symptoms Gastrointestinal: Abdominal Pain (RLQ), Nausea Neurological: No Symptoms Other: Reports: None - Physical Assessment NPO Status Date: 03/29/21 NPO Status Time: 00:00 Vital Signs: Last Vital Signs Temp 36.5 C 03/31/21 08:44 Pulse 91 03/31/21 08:44 Resp 16 03/31/21 08:44 BP 142/78 H 03/31/21 08:44 Pulse Ox 100 03/31/21 08:44 Height: 1.8 m Weight: 61.87 kg ASA Class: 2 Mental Status: Alert & Oriented x3 Airway Class: Mallampati = 1 Dentition: Reports: Normal Dentition Thyro-Mental Finger Breadths: 3 Mouth Opening Finger Breadths: 3 ROM/Head Extension: Full Lungs: Clear to Auscultation, Normal Respiratory Effort Cardiovascular: Regular Rate, Regular Rhythm - Lab Values: Laboratory Last Values WBC 11.06 K/mm3 (4.23-9.07) H 03/30/21 19:40 RBC 4.51 M/mm3 (4.63-6.08) L 03/30/21 19:40 Hgb 13.8 gm/dl (13.7-17.5) 03/30/21 19:40 Hct 39.8 % (40.1-51.0) L 03/30/21 19:40 MCV 88.2 fl (79.0-92.2) 03/30/21 19:40 MCH 30.6 pg (25.7-32.2) 03/30/21 19:40 MCHC 34.7 g/dl (32.2-35.5) 03/30/21 19:40 RDW Std Deviation 39.8 fL (35.1-43.9) 03/30/21 19:40 Plt Count 204 K/mm3 (163-337) 03/30/21 19:40 MPV 11.2 fl (9.4-12.3) 03/30/21 19:40 Neut % (Auto) 84.8 % (34.0-67.9) H 03/30/21 19:40 Lymph % (Auto) 4.7 % (21.8-53.1) L 03/30/21 19:40 [place] % (Auto) 10.2 % (5.3-12.2) 03/30/21 19:40 Eos % (Auto) 0 (0.8-7.0) L 03/30/21 19:40 Baso % (Auto) 0.1 % (0.1-1.2) 03/30/21 19:40 Neut # (Auto) 9.38 K/mm3 (1.78-5.38) H 03/30/21 19:40 Lymph # (Auto) 0.52 K/mm3 (1.32-3.57) L 03/30/21 19:40 [place] # (Auto) 1.13 K/mm3 (0.30-0.82) H 03/30/21 19:40 Eos # (Auto) 0.00 K/mm3 (0.04-0.54) L 03/30/21 19:40 Baso # (Auto) 0.01 K/mm3 (0.01-0.08) 03/30/21 19:40 Sodium 139 mEq/L (136-145) 03/30/21 19:40 Potassium 3.5 mEq/L (3.5-5.1) 03/30/21 19:40 Chloride 101 mEq/L (98-107) 03/30/21 19:40 Carbon Dioxide 24 mEq/L (21-32) 03/30/21 19:40 Anion Gap 17.5 (5-15) H 03/30/21 19:40 BUN 11 mg/dL (7-18) 03/30/21 19:40 Creatinine 0.9 mg/dL (0.7-1.3) 03/30/21 19:40 Est Cr Clr Drug Dosing TNP 03/30/21 19:40 Estimated GFR (MDRD) > 60 mL/min (>60) 03/30/21 19:40 BUN/Creatinine Ratio 12.2 (14-18) L 03/30/21 19:40 Glucose 115 mg/dL (70-99) H 03/30/21 19:40 Calcium 8.9 mg/dL (8.5-10.1) 03/30/21 19:40 Magnesium 1.8 mg/dL (1.8-2.4) 03/30/21 19:40 Total Bilirubin 0.6 mg/dL (0.2-1.0) 03/30/21 19:40 AST 10 U/L (15-37) L 03/30/21 19:40 ALT 9 U/L (16-63) L 03/30/21 19:40 Alkaline Phosphatase 57 U/L (46-116) 03/30/21 19:40 C-Reactive Protein 18.0 mg/dL (<1.0) H* 03/30/21 19:40 Total Protein 7.5 g/dl (6.4-8.2) 03/30/21 19:40 Albumin 4.1 g/dl (3.4-5.0) 03/30/21 19:40 Globulin 3.4 gm/dL 03/30/21 19:40 Albumin/Globulin Ratio 1.2 (1-2) 03/30/21 19:40 SARS-CoV-2 RNA (NATALIE) Positive (NEGATIVE) H 03/30/21 22:52 - Allergies Allergies/Adverse Reactions: Allergies Allergy/AdvReac Type Severity Reaction Status Date / Time No Known Allergies Allergy Verified 03/31/21 05:18 - Anesthesia Plan Pre-Op Medication Ordered: None - Acknowledgements Anesthesia Type Planned: General Anesthesia Pt an Appropriate Candidate for the Planned Anesthesia: Yes Alternatives and Risks of Anesthesia Discussed w Pt/Guardian: Yes Pt/Guardian Understands and Agrees with Anesthesia Plan: Yes PreAnesthesia Questionnaire HEENT History: Reports: Allergic Rhinitis Other HEENT History: Seasonal allergies Genitourinary History: Reports: None Musculoskeletal History: Reports: Fracture Other Musculoskeletal History: left foot (2010) - Infectious Disease History Infectious Disease History: Reports: Novel Coronavirus - Past Surgical History HEENT Surgical History: Reports: Oral Surgery Other HEENT Surgeries/Procedures: [place] Teeth extraction Musculoskeletal Surgical History: Reports: Shoulder Surgery Other Musculoskeletal Surgeries/Procedures:: December 2020 - SUBSTANCE USE Tobacco Use Status *Q: Current Every Day Tobacco User Tobacco Use Within Last Twelve Months: Vaping Second Hand Smoke Exposure: No Recreational Drug Use History: No - HOME MEDS Home Medications: Home Meds Ibuprofen [Ibu] 600 mg PO TID PRN 10/30/20 [History] oxyCODONE 5 mg PO Q4H PRN #15 tab 10/31/21 [Rx] - CURRENT (IN HOUSE) MEDS Current Meds: Current Medications Fentanyl (Fentanyl 100 Mcg/2 Ml Sdv) 50 mcg IVPUSH Q5M PRN PRN Reason: Pain Hydromorphone HCl (Hydromorphone 0.5 Mg/0.5 Ml Syringe) 0.5 mg IVPUSH Q2H PRN PRN Reason: Pain Last Admin: 03/31/21 01:00 Dose: 0.5 mg Documented by: Sodium Chloride (Normal Saline) 1,000 mls @ 100 mls/hr IV ASDIRECTED [facility] Last Admin: 03/31/21 00:59 Dose: 100 mls/hr Documented by: Piperacillin Sod/Tazobactam (Sod 4.5 gm/ Sodium Chloride) 100 mls @ 25 mls/hr IV Q8H [facility] Last Admin: 03/31/21 05:51 Dose: 25 mls/hr Documented by: Ondansetron HCl (Ondansetron 4 Mg/2 Ml Sdv) 4 mg IVPUSH Q6H PRN PRN Reason: Nausea Last Admin: 03/31/21 01:00 Dose: 4 mg Documented by: Sodium Chloride (Sodium Chloride 0.9% 10 Ml Syringe) 10 ml FLUSH ASDIRECTED PRN PRN Reason: Keep Vein Open Last Admin: 03/30/21 21:38 Dose: 10 ml Documented by: Discontinued Medications Bupivacaine HCl (Bupivacaine 0.5% 30 Ml Sdv) Confirm Administered Dose 30 ml .ROUTE .STK-MED ONE Stop: 03/31/21 07:15 Last Admin: 03/31/21 08:05 Dose: 30 ml Documented by: Fentanyl (Fentanyl 250 Mcg/5 Ml Sdv) Confirm Administered Dose 250 mcg .ROUTE .STK-MED ONE Stop: 03/31/21 07:23 Glycopyrrolate (Glycopyrrolate 0.2 Mg/Ml 2 Ml Syringe) Confirm Administered Dose 0.4 mg .ROUTE .STK-MED ONE Stop: 03/31/21 08:32 Glycopyrrolate (Glycopyrrolate 0.2 Mg/Ml 2 Ml Syringe) Confirm Administered Dose 0.4 mg .ROUTE .STK-MED ONE Stop: 03/31/21 08:48 Sodium Chloride (Normal Saline) 1,000 mls @ 999 mls/hr IV ONETIME ONE Stop: 03/30/21 20:44 Last Admin: 03/30/21 19:59 Dose: 999 mls/hr Documented by: Piperacillin Sod/Tazobactam (Sod 4.5 gm/ Sodium Chloride) 100 mls @ 200 mls/hr IV ONETIME ONE Stop: 03/31/21 00:56 Last Admin: 03/31/21 00:59 Dose: 200 mls/hr Documented by: Lidocaine HCl (Xylocaine-Mpf 1%) Confirm Administered Dose 4 mls @ as directed .ROUTE .STK-MED ONE Stop: 03/31/21 07:23 Lactated Ringer's (Ringers, Lactated) Confirm Administered Dose 1,000 mls @ as directed .ROUTE .STK-MED ONE Stop: 03/31/21 08:11 Influenza Virus Vaccine (Pharmacy To Dose - Influenza Vaccine) 1 each IM ONETIME ONE Stop: 03/31/21 00:42 Influenza Virus Vaccine (Flu Vacc [id number] 36mos Up/Pf 60 Mcg/0.5 Ml Syringe) 60 mcg IM .ONCE ONE Stop: 03/31/21 00:46 Iopamidol (Iopamidol 612 Mg/Ml 100 Ml Bottle) 100 ml IVPUSH ONETIME ONE Stop: 03/30/21 21:29 Last Admin: 03/30/21 21:38 Dose: 100 ml Documented by: Iopamidol (Iopamidol 612 Mg/Ml 50 Ml Sdv) 25 ml IVPUSH ONETIME ONE Stop: 03/30/21 21:29 Last Admin: 03/30/21 21:38 Dose: 25 ml Documented by: Ketorolac Tromethamine (Ketorolac 30 Mg/Ml Sdv) 30 mg IVPUSH ONETIME ONE Stop: 03/30/21 19:45 Last Admin: 03/30/21 19:59 Dose: 30 mg Documented by: Midazolam HCl (Midazolam 1 Mg/Ml 2 Ml Sdv) Confirm Administered Dose 2 mg .ROUTE .STK-MED ONE Stop: 03/31/21 07:23 Neostigmine Methylsulfate (Neostigmine Methylsulfate 5 Mg/5 Ml Syringe) Confirm Administered Dose 5 mg .ROUTE .STK-MED ONE Stop: 03/31/21 08:19 Ondansetron HCl (Ondansetron 4 Mg/2 Ml Sdv) 4 mg IVPUSH ONETIME ONE Stop: 03/30/21 19:45 Last Admin: 03/30/21 19:59 Dose: 4 mg Documented by: Ondansetron HCl (Ondansetron 4 Mg/2 Ml Sdv) Confirm Administered Dose 4 mg .ROUTE .STK-MED ONE Stop: 03/31/21 07:22 Propofol (Propofol 200 Mg/20 Ml Sdv) Confirm Administered Dose 200 mg .ROUTE .STK-MED ONE Stop: 03/31/21 07:23 Rocuronium Malo (Rocuronium 50 Mg/5 Ml Vial) Confirm Administered Dose 50 mg .ROUTE .STK-MED ONE Stop: 03/31/21 07:22
== END 2021-03-31 13:10 | disposition home or self-care (01) ==
LOC: JD.ED 18:22 → JD.MS 22:50
PROVIDERS: ADMIT Surgery; ATTEND Surgery
DX: K35.30 Acute appendicitis with localized peritonitis, without perforation or gangrene (principal); U07.1 COVID-19; Z98.890 Other specified postprocedural states; F17.210 Nicotine dependence, cigarettes, uncomplicated; Z79.899 Other long term (current) drug therapy
CPT/HCPCS: 36415; 44970; 74018; 74177; 80053; 83735; 85025; 86140; 87635; 96365; 96366; 96375; 96376; 99285; G0378; J1170; J1885; J2250; J2405; J2543; J2704; J2710; J3010; J3490; J7030; J7120; Q9967; 00840; 96374; U0002